=== PATIENT | male | born 1990 | race Caucasian/White ===

== ENCOUNTER → 2023-05-12 13:39 | Outpatient (CLI) | payer OTHER, SELFPAY ==
[2023-05-14 16:26] LABS: Fecal Immunochemical Test Negative (Negative)
== END ==
PROVIDERS: PCP Physician Assistant Medical; Visit Provider Physician Assistant Medical
DX: K06.8 Other specified disorders of gingiva and edentulous alveolar ridge (principal); R10.9 Unspecified abdominal pain; K29.70 Gastritis, unspecified, without bleeding; R11.0 Nausea
CPT/HCPCS: 82274

== ENCOUNTER → 2023-05-13 13:02 | Outpatient (CLI) | payer OTHER, SELFPAY ==
[2023-05-13 19:03] LABS: Add Manual Diff / Slide Review NO; Basophils Absolute Auto 0 /uL (0-100); Basophils Percent Auto 0.8 % (0-2); Eosinophils Absolute Auto 200 /uL (0-450); Eosinophils Percent Auto 3.9 % (2-4); Hematocrit 45.7 % (41-53); Hemoglobin 15.9 g/dL (13.5-17.5); Lymphocytes Absolute Auto 1300 /uL (1100-4500); Mean Corpuscular HGB Conc 34.8 % (30-36); Mean Corpuscular Hemoglobin 33.3 PG (26-34); Mean Corpuscular Volume 95.7 fL (80-100); Monocytes Absolute Auto 600 /uL (0-900); Monocytes Percent Auto 13.9 % (3-14); Neutrophils Absolute Auto 2100 /uL (1500-7000); Neutrophils Percent Auto 50.4 % (50-75); Platelet Count 253 X10^3/uL (150-400); Red Blood Cell Count 4.78 X10^6/uL (4.5-5.9); White Blood Cell Count 4.2 X10^3/uL (4.5-11.0)
[2023-05-13 19:40] LABS: Alanine Aminotransferase 86 IU/L (<50); Albumin 4.4 g/dL (3.5-5.0); Alkaline Phosphatase 30 U/L (38-126); Aspartate Aminotransferase 66 IU/L (17-59); BUN Creatinine Ratio 15.7 (6-22); Bilirubin Total 1.1 mg/dL (0.2-1.3); Blood Urea Nitrogen 13 mg/dL (9-20); Carbon Dioxide 28 mmol/L (22-32); Chloride 102 mmol/L (98-107); Estimated Glomerular Filt Rate > 60 mL/min (>60); Globulin 2.8 g/dL (1.7-4.1); Glucose 71 mg/dL (70-100); HEMOLYSIS 18 (0-50); Potassium 4.5 mmol/L (3.4-5.1); Sodium 139 mmol/L (137-145); Total Protein 7.2 g/dL (6.3-8.2)
[2023-05-13 19:41] LABS: Albumin Globulin Ratio 1.6 (1.0-2.8)
[2023-05-17 14:42] LABS: Interpretation Negative (Negative)
== END ==
PROVIDERS: PCP Physician Assistant Medical; Visit Provider Physician Assistant Medical
DX: K06.8 Other specified disorders of gingiva and edentulous alveolar ridge (principal); R10.9 Unspecified abdominal pain; K29.70 Gastritis, unspecified, without bleeding; R11.0 Nausea
CPT/HCPCS: 80053; 83013; 84443; 85025